=== PATIENT | female | born 1960 | race African-American/Black ===

== ENCOUNTER → 2021-08-17 10:10 | Outpatient (CLI) | payer OTHER, SELFPAY ==
--- NOTE | ~2021-08-17 | XR_ITS ---
EXAMINATION: XR chest 2V Exam Date/Time: 08/17/2021 10:24 CDT HISTORY: Pre employment Comparison: None available. RESULT: Lines, tubes, and devices: None. Lungs and pleura: Ill-defined somewhat nodular opacity in the left lower lung, no correlate in the l ateral view may represent findings in the lingula. Cardiomediastinal silhouette: Stable cardiomediastinal silhouette. Other: No acute osseous or upper abdominal finding. IMPRESSION: Question of a lingular opacity/nodule, consider nonemergent outpatient CT of the chest for further ev aluation. Reviewed, dictated and finalized at location K. IMPRESSION: Question of a lingular opacity/nodule, consider nonemergent outpatient CT of th e chest for further evaluation.
== END ==
PROVIDERS: PCP Family Medicine; Visit Provider Internal Medicine
DX: Z02.1 Encounter for pre-employment examination (principal); R91.8 Other nonspecific abnormal finding of lung field
CPT/HCPCS: 71046

== ENCOUNTER → 2021-08-23 11:06 | Outpatient (CLI) | payer OTHER, SELFPAY ==
--- NOTE | ~2021-08-23 | CT_ITS ---
EXAMINATION: CT diagnostic chest w con DATE: 08/23/2021 11:39 INDICATION: Possible lingular nodule on chest radiograph TECHNIQUE: Transaxial computed tomographic images of the chest were obtained after the administration of 75 cc of Omnipaque 300 intravenous contrast. The dose-length product (DLP) was 273.90 mGy-cm. Ite rative reconstruction was used. COMPARISON: 08/17/2021 FINDINGS: No suspicious correlate is identified for the nodule questioned on the recent chest radiogr aph. A 4 mm nodule of the right upper lobe likely represents old granulomatous disease. There is mild atelectasis of the lingula and right middle lobe. No pleural effusion or pneumothorax. The lungs are free of focal airspace opacities. No pathologically enlarged thoracic lymph nodes are identified. Th e heart size is normal. There is calcified coronary artery atherosclerosis. IMPRESSION: 1. Mild atelectasis. No suspicious correlate for the nodule questioned on recent chest radiograph. Reviewed, dictated and finalized at location F. IMPRESSION: 1. Mild atelectasis. No suspicious correlate for the nodule questioned on recen t chest radiograph.
[2021-08-23 11:32] LABS: Estimated Glomerular Filt Rate > 60
== END ==
PROVIDERS: PCP Family Medicine; Visit Provider Family Medicine
DX: R91.8 Other nonspecific abnormal finding of lung field (principal); I25.10 Atherosclerotic heart disease of native coronary artery without angina pectoris
CPT/HCPCS: 71260; Q9967

== ENCOUNTER → 2021-09-27 09:19 | Outpatient (CLI) | payer OTHER, SELFPAY ==
--- NOTE | ~2021-09-27 | CT_ITS ---
EXAMINATION: CT abdomen pelvis wo con DATE: 09/27/2021 09:33 INDICATION: Left lower quadrant abdominal pain. Diverticulosis. TECHNIQUE: Computed tomography (CT) of the abdomen and pelvis was performed without intravenous contr ast. Automated exposure control and iterative reconstruction technique were employed. Exam dose: 791 .81 mGy-cm total exam DLP. COMPARISON: None. FINDINGS: There is mild discoid atelectasis or scarring in the medial middle lobe and base of the opal gula and left lower lobe. Normal heart size. No pericardial or pleural effusion. The gallbladder is absent. No hepatic, splenic, pancreatic space-occupying mass lesion, pancreatic c alcification or bile duct or pancreatic duct dilatation. Mild nodularity of the adrenal glands, possible small adrenal adenomas. No renal mass lesion or urinary tract calculus or hydroureteronephrosis is evident. There is atherosclerotic calcification of the abdominal aorta and iliac arteries but no aneurysm. No intraperitoneal or retroperitoneal or pelvic mass lesion or adenopathy or ascites is evident. There is diverticulosis of the colon; there is minimal pericolic fat stranding and fascial thickening adjacent to the distal descending colon which may represent mild focal uncomplicated diverticulitis without abscess. No intraperitoneal free air. No bowel obstruction. Status post hysterectomy. The urinary bladder is unremarkable. Small fat-containing umbilical hernia. Degenerative changes of the thoracic and lumbar spine. No suspicious osteolytic or osteoblastic lesio ns.. IMPRESSION: Mild diverticulitis is suggested at the distal descending colon Status post hysterectomy Reviewed, dictated and finalized at Location A. Reviewed, dictated and finalized at location B.
== END ==
PROVIDERS: PCP Family Medicine; Visit Provider Family Medicine
DX: K57.30 Diverticulosis of large intestine without perforation or abscess without bleeding (principal); Z90.710 Acquired absence of both cervix and uterus
CPT/HCPCS: 74176

== ENCOUNTER → 2021-11-27 16:25 | Outpatient (CLI) | payer OTHER, SELFPAY ==
--- NOTE | ~2021-11-27 | XR_ITS ---
EXAM: XR hand BI arthritis min 3V DATE: 11/27/2021 18:21 HISTORY: Arthralgia both hands . COMPARISON: None available. FINDINGS: Normal mineralization. No fracture or dislocation. No lytic or blastic lesion. Moderate na rrowing sclerosis and osteophytosis with subchondral cyst formation in the left trapeziometacarpal charles int. Similar, but more mild osteoarthritic changes are present in the interphalangeal joints of the f ingers, the right trapeziometacarpal joint, the bilateral radiocarpal joints, and the bilateral secon d and third MCP joints. Minimal chondrocalcinosis. Tiny erosions at the lateral corners of the bilate ral second proximal phalanges the ball-catcher's view. No concerning periosteal change. No significan t subluxation. 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 Scattered, mild, predominan tly osteoarthritic change elsewhere in the hands and wrists. Tiny erosions at the lateral corners of the bilateral second proximal phalanges, may reflect a component of early inflammatory arthritic schmitz ge. Reviewed, dictated and finalized at location K. 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 Scatt ered, mild, predominantly osteoarthritic change elsewhere in the hands and wris ts. Tiny erosions at the lateral corners of the bilateral second proximal phala nges, may reflect a component of early inflammatory arthritic change.
== END ==
PROVIDERS: PCP Family Medicine; Visit Provider Family Medicine
DX: M25.541 Pain in joints of right hand (principal); M25.542 Pain in joints of left hand; M05.741 Rheumatoid arthritis with rheumatoid factor of right hand without organ or systems involvement; M05.742 Rheumatoid arthritis with rheumatoid factor of left hand without organ or systems involvement; M19.042 Primary osteoarthritis, left hand; M19.041 Primary osteoarthritis, right hand
CPT/HCPCS: 73130

== ENCOUNTER → 2022-07-03 16:39 | Outpatient (CLI) | payer OTHER, SELFPAY ==
--- NOTE | ~2022-07-03 | XR_ITS ---
EXAMINATION: XR shoulder LT min 2V DATE: 07/03/2022 16:59 INDICATION: Acute pain of left shoulder. TECHNIQUE: 4 views of left shoulder were obtained. COMPARISON: None. FINDINGS: Bone alignment is normal. No fracture. There is mild osteoarthritis of glenohumeral joint a nd acromioclavicular joint. IMPRESSION: 1. Mild polyarticular osteoarthritis. Reviewed, dictated and finalized at location E.
== END ==
PROVIDERS: PCP Family Medicine; Visit Provider Nurse Practitioner Family
DX: M19.012 Primary osteoarthritis, left shoulder (principal)
CPT/HCPCS: 73030

== ENCOUNTER → 2023-01-26 13:34 | Outpatient (CLI) | payer OTHER, SELFPAY ==
--- NOTE | ~2023-01-26 | XR_ITS ---
EXAMINATION: XR chest 2V 01/26/2023 14:51 INDICATION: Right-sided chest pain PROCEDURE: 2 view chest COMPARISON: 08/17/2021 FINDINGS: The lungs are clear. The cardiomediastinal silhouette is within normal limits. There are no pleural effusions. There is no pneumothorax suspected. IMPRESSION: 1: NO ACUTE CARDIOPULMONARY DISEASE. Reviewed, dictated and finalized at location B. STERED MAIL CLERK
== END ==
PROVIDERS: PCP Family Medicine; Visit Provider Family Medicine
DX: R07.9 Chest pain, unspecified (principal)
CPT/HCPCS: 71046

== ENCOUNTER 2023-09-26 10:41 | Outpatient (CLI) | payer OTHER, SELFPAY ==
--- NOTE | ~2023-09-26 | US_ITS ---
EXAMINATION: US thyroid DATE: 09/26/2023 11:00 INDICATION: Endocrine disorder. TECHNIQUE: Multiple ultrasound images of the thyroid were obtained. COMPARISON: None. FINDINGS: The right thyroid lobe measures 3.7 x 0.9 x 1.5 cm. The left thyroid lobe measures 3.1 x 1.1 x 1.4 c m. There is normal echotexture and echogenicity throughout the thyroid gland. No discrete nodules id entified. Normal vascular flow is present. IMPRESSION: 1. Normal thyroid. Reviewed, dictated and finalized at location A. IMPRESSION: 1. Normal thyroid.
== END 2023-09-26 10:42 ==
PROVIDERS: PCP Family Medicine; Visit Provider Otolaryngology
DX: Z13.29 Encounter for screening for other suspected endocrine disorder (principal)
CPT/HCPCS: 76536

== ENCOUNTER 2025-01-29 08:54 | Emergency (ER) | payer MEDICARE, SELFPAY ==
--- OUTSIDE RECORDS SUMMARY | 2018-01-28 11:30 | XMS_ITS | Continuity of Care Document ---
Author Organization [facility] Address [address] [place] [address] Phone Care Team Providers Care Commercial Illustrator Name Role Phone Chaparro PT, DPT, Marcelino Unavailable Unavailable Procedures Procedure Date Therapeutic Exercise Therapeutic Activities Manual Therapy Therapeutic Exercise Therapeutic Activities Manual Therapy Therapeutic Exercise Therapeutic Activities Manual Therapy Therapeutic Exercise Therapeutic Activities Manual Therapy Therapeutic Exercise Therapeutic Activities Manual Therapy Therapeutic Exercise Therapeutic Activities Manual Therapy PT Evaluation Moderate Complexity Therapeutic Exercise Neuromuscular Re-Ed Manual Therapy Advance Directives Directive Yes / No Effective Date File Name No Information Encounters Encounter Description Practice Location Reason(s) For Visit Diagnoses Date Provider Providers Copied on Encounter [facility], [address], [place], [place], [id number], tel:[phone] [place] Pain in right kneeOth symptoms and signs involving the musculoskeletal system 8 Chaparro Benson. . [facility], [place], [place], [id number], tel:[phone] [place] Pain in right kneeOth symptoms and signs involving the musculoskeletal system 8 Makler Luke. . [facility], [id number], tel:[phone] [place] Pain in right kneeOth symptoms and signs involving the musculoskeletal system 8 Makler Luke. . [facility], [id number], tel:[phone] [place] Pain in right kneeOth symptoms and signs involving the musculoskeletal system 8 Makler Luke. . [facility], [id number], tel:[phone] [place] Pain in right kneeOth symptoms and signs involving the musculoskeletal system 8 Makler Luke. . [facility], [id number], tel:[phone] [place] Pain in right kneeOth symptoms and signs involving the musculoskeletal system 8 Makler Luke. . [facility], [id number], tel:[phone] [place] Pain in right kneeOth symptoms and signs involving the musculoskeletal system 8 Makler Luke. . Family History Family Member Type Diagnosis Age At Onset No Information Payers Payer name Insurance type Covered libertarian ID Daniela bourneramo(s) [facility] [employer] [facility] [id number] Social History Type Description Quantity Date Captured Comments Sex Female Smoking Status No Information Chief Complaint And Reason For Visit No Information Reason For Referral Reason For Referral No Information History Of Present Illness Encounter Date Complaint History Of Prese nt Illness No Information Functional Status Date Functional Assessmen t No Information Instructions Date Instruction Additional Infor mation No Information Assessments Type Assessment Date No Information Patient Care Teams Name Effective Dates (start - stop) Status Members No Information
--- OUTSIDE RECORDS SUMMARY | 2018-01-28 11:30 | XMS_ITS | Continuity of Care Document ---
Author Organization [facility] Address [address] [place] [address] Phone Care Team Providers Care Real Estate Assistant Name Role Phone Chaparro PT, DPT, Marcelino [...] Diagnoses Date Provider Providers Copied on Encounter [facility], [address], [place], [place], [id number], tel:[phone] [place] Pain in right kneeOth symptoms and signs involving the musculoskeletal system 8 Chaparro Benson. . [facility], [place], [place], [id number], tel:[phone] [place] Pain in right kneeOth symptoms and signs involving the musculoskeletal system 8 Makler Luke. . [facility] [address], [id number], tel:[phone] [place] Pain in right kneeOth symptoms and signs involving the musculoskeletal system 8 Makler Luke. . [facility], [id number], tel:[phone] [place] Pain in right kneeOth symptoms and signs involving the musculoskeletal system 8 Makler Luke. . [facility] [facility] [address], [id number], tel:[phone] [place] Pain in right kneeOth symptoms and signs involving the musculoskeletal system 8 Makler Luke. . [facility], [id number], tel:[phone] [place] Pain in right kneeOth symptoms and signs involving the musculoskeletal system 8 Makler Luke. . [facility], [id number], tel:[phone] [place] Pain in right kneeOth symptoms and signs involving the musculoskeletal system 8 Makler Luke. . Family History Family Member Type Diagnosis Age At Onset No Information Payers Payer name Insurance type Covered libertarian ID Daniela bourneramo(s) [facility] [employer] [facility] [id number] Social History Type Description Quantity Date Captured [...]
--- OUTSIDE RECORDS SUMMARY | 2024-04-08 04:30 | XMS_ITS ---
Author Organization [facility] jennie Address [address] [place] [address] Care Team Providers Care Claim Processor Name Role Phone Tyler Lynne MD Primary Care Provider Unavail Wanda Guy Unavailable [phone] REASON FOR VISIT 3 month f/u, yd, yd/3 month follow up/flc, RA Medications Medication SIG (Take, Route, Frequency, Duration) Notes Start Date End Date Status Fish Oil 1000 MG daily Oral Ac tive Probiotic Active Collagen Active Turmeric 1500 mg take 1 capsule daily oral *Pick strength-form from [employer] for eRX* Active Folic Acid 800 MCG take 1 tablet (0.8 mg) by oral route once daily Oral 1 Active Metabolic Health Supplement - bid - *Reorder from [employer] for eRx and Interaction Alerts* Active amLODIPine Besylate 5 MG 1 tablet Orally Once a day; Duration: 30 day(s) Active Vitamin C 1000 MG take 1 tablet by oral route once Oral 1 Active Biotin Maximum Strength 5000 MCG take 1 capsule by oral route twice Oral 2 Active Vitamin B 12 Active Vitamin D3 Active Hydroxychloroquine Sulfate 200 MG 1 Orally daily with food; Duration: 30 days Active Encounters Encounter Location Date Provider Diagnosis [facility] [address] [facility] [address] [place] [address] 04/08/2024 Wanda Ross Other rheumatoid arthritis with rheumatoid factor of multiple sites M05.89 ; Decreased GFR R94.4 and High risk medication use Z79.899 Assessments Encounter Date Diagnosis (ICD Code) Assessment Notes Treatment Notes Treatment Clinical Notes Section Notes 04/08/2024 Other rheumatoid arthritis with rheumatoid factor of multiple sites (ICD-10 - M05.89) stable for the most part, continue plaquenil 200mg/day, return in 3 months 04/08/2024 Decreased GFR (ICD-10 - R94.4) stable for the most part, continue plaquenil 200mg/day, return in 3 months 04/08/2024 High risk medication use (ICD-10 - Z79.899) stable for the most part, continue plaquenil 200mg/day, return in 3 months Plan Of Treatment Next Appt Details Provider Name:Wanda Joe, 02/03 10:45:00 AM, [address] [facility] [address], [place], [address], Progress Notes * Kirti HERRING LDOB:[birth year] (64 yo F)Acc No.[id number]:04/08/2024 Patient: Kirti SCHAFFER Appointment Provider: Lenore ROSS MD :1960 A ge:64 Y S ex:Female Date:04/08/2024 [facility] Pcp:Tyler Lynne MD Subjective: * Chief Complaints: * 1 . 3 month f/u, yd. 2. Yd/3 month follow up/flc. 3. RA. * HPI: G eneral Follow up: Synchronous video/audio telecommunication with [employer] Patient has agreed to telehealth visit and is aware insurance will be billed for this visit Location: patient at home, physician in officeon plaquenil 200mg/day, left aches, worse at night, knee bracing helping, also uses ?TENS unit, helping too did not tolerate MTX (liver, throat pain) 01/2023, Cr 0.85, GFR 77, AST normal, ALT 47 08/30/22, CR 0.95, GFR 68, ALT 34 (0-32), AST normal, 12/12/2021, anti-CCP 83.9, SSA/SSB (-), ESR normal, HBV/HCV (-), LFTS (-) 11/27/2021, x-rays of hands: tiny erosions at isa 2nd PIPs, osteoarthritis 11/20/2021, RF 110.8, CARTER (-), CRP normal, WBC/Hb/platelets normal, Cr 1.0, GFR 64 eye exam: 10/2023 sister: RA. * ROS: G eneral / Constitutional: Patient denies c hange in appetite, chills, fatigue, fever, weight loss, weakness. C omments [facility] for details. M usculoskeletal: Comments [facility] for details. S kin: Comments [facility] for details . N eurologic: Patient denies d izziness, gait abnormality, headache, tingling / numbness . * Medical History: * Medications: T aking Hydroxychloroquine Sulfate 200 MG Tablet 1 Orally daily with food , Taking Vitamin D3 , Taking Vitamin B 12 , Taking Biotin Maximum Strength 5000 MCG Capsule take 1 capsule by oral route twice Oral 2 , Taking amLODIPine Besylate 5 MG Tablet 1 tablet Orally Once a day , Taking Metabolic Health Supplement - bid - , Notes to Pharmacist: *Reorder from [employer] for eRx and Interaction Alerts*, Taking Vitamin C 1000 MG Tablet take 1 tablet by oral route once Oral 1 , Taking Fish Oil 1000 MG Capsule Delayed Release daily Oral , Taking Folic Acid 800 MCG Tablet take 1 tablet (0.8 mg) by oral route once daily Oral 1 , Taking Turmeric 1500 mg capsule take 1 capsule daily oral , Notes to Pharmacist: *Pick strength-form from [employer] for eRX*, Taking Collagen , Taking Probiotic Objective: * Vitals: * Examination: G eneral Examination: General appearance: a lert, well-nourished and in no acute distress , alert, well-nourished and in no acute distress , alert, well-nourished and in no acute distress. Head: n ormocephalic, atraumatic , normocephalic, atraumatic , normocephalic, atraumatic. Eyes: n ormal , normal , normal. Skin: n o rash , no rash , no rash. Lungs: r espiratory effort normal , respiratory effort normal , respiratory effort normal. P sychiatry: Affect / mood: n ormal affect, normal mood , appropriate , appropriate. N eurology: Speech: n ormal , normal. s peech normal. R heumatology: R 2nd PIP mildly tender no obvious swelling. Assessment: * Assessment: 1. O ther rheumatoid arthritis with rheumatoid factor of multiple sites - M05.89 (Primary) 2 . D ecreased GFR - R94.4 3 . H igh risk medication use - Z79.899 stable for the most part, co ntinue plaquenil 200mg/day, return in 3 months. Plan: * Treatment: * Billing Information: * Visit Code: * Procedure Codes: * Electronic signature of Wanda Ross MD on 01/29/2025 at 08:57 AM CERTIFIED ATHLETIC TRAINER Sign off status: Pending * Appointment Provider: Lenore ROSS MD Date: 0 04/08/2024 Generated for Mel banks/Michael/Dorcas on: 1 04/01/2024 08:57 AM CERTIFIED ATHLETIC TRAINER History and Physical Notes * HPI (History of Present Illness) Category Sub-Category Detail Notes Category Not es General Follow up Synchronous video/audio telecommunication with [employer] Patient has agreed to telehealth visit and is aware insurance will be billed for this visit Location: patient at home, physician in office on plaquenil 200mg/day, left aches, worse at night, knee bracing helping, also uses ?TENS unit, helping too did not tolerate MTX (liver, throat pain) 01/2023, Cr 0.85, GFR 77, AST normal, ALT 47 08/30/22, CR 0.95, GFR 68, ALT 34 (0-32), AST normal, 12/12/2021, anti-CCP 83.9, SSA/SSB (-), ESR normal, HBV/HCV (-), LFTS (-) 11/27/2021, x-rays of hands: tiny erosions at isa 2nd PIPs, osteoarthritis 11/20/2021, RF 110.8, CARTER (-), CRP normal, WBC/Hb/platelets normal, Cr 1.0, GFR 64 eye exam: 10/2023 sister: RA Examination Category Sub-Category Detail Notes Category Not es Rheumatology R 2nd PIP mildly tender no obvious swelling Neurology Speech: normal , normal speech norm al Psychiatry Affect / mood: normal affect, n ormal mood , appropriate , appropriate General Examination General appearance: alert, w ell-nourished and in no acute distress , alert, well-nourished and in no acute distress , alert, well-nourished and in no acute distress Head: normocephalic, atrau matic , normocephalic, atraumatic , normocephalic, atraumatic Eyes: normal , normal , no rmal Lungs: respiratory effort n ormal , respiratory effort normal , respiratory effort normal Skin: no rash , no rash , no rash
--- OUTSIDE RECORDS SUMMARY | 2024-04-08 04:30 | XMS_ITS ---
Author Organization [facility] Address [address] [place] [address] Care Team Providers Care Horse Race Timer Name Role Phone Tyler Lynne MD Primary Care Provider Unavail Wanda Guy Unavailable [phone] REASON FOR VISIT yd/3 month follow up/flc Encounters Encounter Location Date Provider Diagnosis [facility] [address] [place] [address] 04/08/2024 Wanda Ross Plan Of Treatment Next Appt Details Provider Name:Wanda Ross, 02/03 10:45:00 AM, [address], [place], [address], Progress Notes * NIMAChristopherKirti LDOB:[birth year] (64 yo F)Acc No.[id number]:04/08/2024 Progress Notes Patient: Kirti SCHAFFER Appointment Provider: Lenore ROSS MD :1960 A ge:64 Y S ex:Female Date:04/08/2024 Address:[address], [id number] Pcp:Tyler Lynne MD Subjective: * Chief Complaints: * 1 . Yd/3 month follow up/flc. * Medical History: Objective: * Vitals: Assessment: Plan: * Treatment: * Billing Information: * Visit Code: * Procedure Codes: * Electronic signature of Wanda Ross MD on 01/29/2025 at 08:57 AM ESL INSTRUCTOR Sign off status: Pending * Appointment Provider: Lenore ROSS MD Date: 0 04/08/2024 Generated for Mel banks/Michael/Dorcas on: 1 04/01/2024 08:57 AM ESL INSTRUCTOR
--- NOTE | ~2025-01-29 | XR_ITS ---
Examination: XR shoulder RT min 2V Clinical History: pain to Rt shoulder since last night, no known injury Comparison: None Technique: 4 views right shoulder Findings/impression: 1. No acute fracture or dislocation. Reviewed, dictated and finalized at location R. N ROOM OPERATOR
[2025-01-29 08:55] VITALS: BP 146/77; PULSE 89; RESP 16; TEMP 36.5; O2SAT 100
--- NOTE | 2025-01-29 08:58 | ECG_ITS ---
Test Date: 2025-01-29 09:01:32 Measurements Intervals [place] Rate: 85 P: 60 ME: 138 QRS: 19 QRSD: 77 T: 44 QT: 315 QTc: 376 Interpretive Statements SINUS RHYTHM LOW QRS VOLTAGE IN PRECORDIAL LEADS POSSIBLE ANTERIOR MYOCARDIAL INFARCTION , PROBABLY OLD BORDERLINE ST-T WAVE ABNORMALITY- LAT/HIGH LAT LEADS BASELINE ARTIFACT- I, II, III, AVR, AVL, AVF ABNORMAL ECG No previous ECG available for comparison Electronically Signed On 01-29-2025 09:33:28 NETWORK SPECIALIST by Niko Reyna D.O.
--- OUTSIDE RECORDS SUMMARY | 2025-01-29 08:58 | XMS_ITS | Clinical Summary ---
Author Organization [facility] [address] Address [address] [place] [address] Care Team Providers Care Running Rigger Name Role Phone Tyler Lynne MD Primary Care Provider [phone] Rachael Scott MD Unavailable [phone] Wanda Diaz MD Unavailable Allergies Active Allergy Reactions Criticality Noted Date Comments Latex Other (See comments) Reaction: RASH AND ITCHING, , Medications ascorbic fxyc-ccnfiljw-usl 1,000 mg powder effervescent in packet Take 1 Package by mouth daily Active TURMERIC ORAL Take 1,500 mg by mouth Active hydroxychloroquin e (PLAQUENIL) 200 mg tablet Take 1 tablet (200 mg total) by mouth daily 4 Active Bacillus coagulans/inulin/ B12 (FLORASTOR DIGEST-METABOLIC ORAL) bid - Active ascorbic acid/collagen hydr (ASCORBIC ACID-COLLAGEN ORAL) Collagen Active amLODIPine (NORVASC) 5 mg tabletIndications :Benign hypertension Take 1 tablet (5 mg total) by mouth daily 90 tablet 3 5 09/17/19 26 Active tirzepatide (Mounjaro) 2.5 mg/0.5 mL pen injector injection Inject 0.5 mL (2.5 mg total) under the skin every 7 days 2 mL 5 Active Active Problems Problem Noted Date Diagnosed Date Prediabetes 03/05/2020 Assessment & Plan (12/14/2020 3:46 PM CDT): We may need to bring back in 3 months if the repeat a1c is above 6.5%; that is ordered to be rechecked in 2 weeks For now, will consider you prediabetic still. Cut back on carbohydrate-rich foods, get more exercise. Assessment & Plan (06/13/2020 4:30 PM CDT): The blood sugar is improved, still in 'prediabetic' range but closer to normal. Not particularly worrisome. 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 Assessment & Plan (09/07/2022 11:20 AM CDT): BMI Follow-up includes: nutrition counseling, exercise counseling, and education provided. Assessment & Plan (07/03/2022 4:54 PM CDT): Healthy, low carbohydrate lifestyle and exercise for 150min/week recommended Assessment & Plan (02/26/2022 3:42 PM DELIVERY REP): BMI Follow-up includes: nutrition counseling, exercise counseling and education provided. Assessment & Plan (10/02/2021 3:01 PM CDT): BMI Follow-up includes: nutrition counseling, exercise counseling and education provided. Assessment & Plan (12/14/2020 3:47 PM CDT): BMI Follow-up includes: nutrition counseling, exercise counseling and education provided. Assessment & Plan (06/13/2020 4:30 PM CDT): BMI Follow-up includes: nutrition counseling, exercise counseling and education provided. Benign hypertension 06/17/2016 Overview (07/18/2016): Benign hypertension Assessment & Plan (09/07/2022 11:19 AM CDT): BP is controled Continuing amlodipine Labs look fine overall I do note the red cell count is mildly elevated; ALT is 34 international units/L, also mildly elevated. Assessment & Plan (12/14/2020 3:47 PM CDT): BP is borderline elevated, will continue current regimen however as it is a bit of an outlier. Continuing amlodipine Assessment & Plan (06/13/2020 4:30 PM CDT): Will look at the lab results a bit more, consider hematology consultation The BP is well controlled, will continue amlodipine Diverticulosis of colon 11/08/2010 Keratitis, superficial 08/12/2010 Resolved Problems Problem Noted Date Diagnosed Date Resolved Date Hyperthyroidism 09/24/2023 09/19/2024 Epistaxis 04/05/2018 10/18/2018 Assessment & Plan (04/05/2018 12:50 PM DELIVERY REP): Patient was noted to have a small hypervascular area with excoriation along the anterior septum. Silver nitrate cautery was performed today. Nasal moisturizers and nasal hygiene care instructions were discussed. Patient can follow back up as needed. Parotitis 01/12/2018 10/18/2018 Immunizations Immunization Administration Dates Next Due Hep B Vaccine 09/28/2021,08/28/2021 Influenza, Trivalent, IM (MDV) 12/12/2013,2012 Influenza, Unspecified 04/28/2024(Deferr ed: Patient Refused),02/24/2023(Deferred: Patient Refused),11/23/2022,11/25/2021,02/23/19 22(Deferred: Patient Refused),12/17/2019,11/23/2018(Deferred : Patient Refused),01/11/2018(Deferred: Patient Refused),11/23/2017(Deferred: Patient Refused) Pfizer SARS-CoV-2 Monovalent Vaccination (12+ Yrs) PURPLE 05/31/2021,05/17/2020,04/26/2020 Tdap 09/02/2021 Surgical History Surgery Date Site/Laterality Comments OTHER SURGICAL HISTORY fibroid: BALAJI BSO-ERT OTHER SURGICAL HISTORY 02/23/1979 - 02/23/1980 : OTHER SURGICAL HISTORY 02/23/1986 - 02/22/1987 : SECTION OTHER SURGICAL HISTORY caesarian section TOTAL ABDOMINAL HYSTERECTOMY W/ BILATERAL SALPINGOOPHORECTOMY Hysterectomy, total abdominal, BSO APPENDECTOMY 04/1980 Appendectomy CHOLECYSTECTOMY 04/1980 Cholecystectomy KNEE ARTHROPLASTY Right Knee replacement REDUCTION MAMMAPLASTY 02/24/1992 - 02/22/1993 Bilateral CARPAL TUNNEL RELEASE SECTION 1979 & 1986 JOINT REPLACEMENT Total Right Knee Replacement 06/05/2015 Medical History Medical History Date Comments Hx Other Medical 1990 fibroid Hx Other Medical 1995 HERNIA REPAIR/A BD Hx Other Medical BREAST REDUCTIO N Hypertension 2 years ago Hypertension Hx Other Medical 1979 ; Outc ome: 40 week 7 lb(s) 12 oz Female Hx Other Medical 1986 ; Outc ome: 38 week 7 lb(s) 6 oz Female Hx Other Medical back pain; Comm ents: APO 11/11/2013 - Hx Other Medical balaji; Comments: APO 11/11/2013 - Hx Other Medical c section; Comm ents: APO 11/11/2013 - Hx Other Medical hiatal hernia; Comments: APO 11/11/2013 - Osteoarthritis Osteoarthritis; Comments: APO 11/11/2013 - Osteoarthritis Osteoarthritis; Comments: OAC 03/24/2014 -; Laterality: bilateral Sciatica Sciatica; Commen ts: OAC 03/24/2014 -; Laterality: left Diverticulosis of colon 11/08/2010 Benign hypertension 06/17/2016 Benign hyper tension Hiatal hernia Prediabetes 03/05/2020 Sickle cell anemia (HCC) 1981 Autoimmune disease [id number] Family History Medical History Relation Name Comments Arthritis Father Rev Edmond Ahn Hypertension Father Rev Edmond hAn Hyperten marleni; Arthritis Mother Christina Ahn Hypertension Mother Christina Ahn Hypertension; Arthritis Other 1 Family history of Arthritis; Hypertension Other 2 Family history of Hypertension; Breast cancer Neg Hx Endometrial cancer Neg Hx Ovarian cancer Neg Hx Thyroid cancer Neg Hx Relation Name Status Comments Father Rev Edomnd Ahn Mother Christina Ahn Other 1 Other 2 Social History Tobacco Use Types Packs/Day Years Used Date Smoking Tobacco: Former Cigarettes 0.3 8 1 980 - 1987 Passive Smoke Exposure: Past Smokeless Tobacco: Never Alcohol Use Standard Drinks/Week Comments No 0 (1 standard drink = 0.6 oz pur e alcohol) Overall Financial Resource Strain (CARDIA) Answe r Date Recorded How hard is it for you to pa y for the very basics like food, housing, medical care, and heating? Not hard at all 04/18/2019 PHQ-2 Answer Date Recorded PHQ-2 Total Score (If total score is 3 or more points, staff should administer the PHQ-9) 0 04/28/2024 Hunger Vital Sign Answer Date Recorded Within the past 12 months, y ou worried that your food would run out before you got the money to buy more. Never true 04/18/19 20 Within the past 12 months, t he food you bought just didn't last and you didn't have money to get more. Never true 04/18/2019 PRAPARE - Transportation Answer Date Re corded In the past 12 months, has l ack of transportation kept you from medical appointments or from getting medications? No 03/27 In the past 12 months, has l ack of transportation kept you from meetings, work, or from getting things needed for daily living? No 04/18/2019 Education Answer Date Recorded What is the highest level of school you have completed or the highest degree you have received? 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 Not on file Not on file Obstetrics History Para Term AB IAB SAB Ectopic Multiple Livin g Live Births 2 2 2 Date Outcome GA Total Labor Labor/2nd/3rd Weight Sex Type Anes PTL Sallie A1 A5 Name Clin Term Term Last Filed Vital Signs Vital Sign Reading Time Taken Comments Blood Pressure 128/80 09/16/2024 10:03 AM CDT Pulse 72 09/16/2024 10:03 AM CDT Temperature 36 C (96.8 F) 09/16/2024 10:03 AM CDT Respiratory Rate 18 09/16/2024 10:03 AM CDT Oxygen Saturation 98% 09/16/2024 10:03 AM CDT Inhaled Oxygen Concentration - - Weight 84.8 kg (187 lb) 09/16/2024 10:03 AM CDT Height 162.6 cm (5' 4) 09/16/2024 10:03 AM CDT Body Mass Index 32.1 09/16/2024 10:03 AM CDT Plan of Treatment Health Maintenance Due Date Last Done Comments Zoster Vaccine (1 of 2) 02/10/1979 Regular Well Visit/Exam 18-64 04/18/2020 04/18/2019 Covid-19 Vaccine (2024-2 6 season) 2024 01/01/2022, 05/31/2021, 05/31/2021, Additional history exists Influenza Vaccine (#1) 2024 , 11/25/2021, 12/17/2019, Additional history exists Breast Cancer Screening-Mammogram 01/07/2025 01/08/2024, 01/08/2024, 11/25/2022, Additional history exists Colon Cancer Screening-Colonoscopy 04/25/2025 04/26/2015 Depression Screening 04/28/2025 04/28/2024, 12/24/2023, 09/16/2023, Additional history exists DTaP/Tdap/Td Vaccine (2 - Td or Tdap) 09/03/2031 09/02/2021 Colon Cancer Screening-CT Colonography Discontinued 04/26/2015 Colon Cancer Screening-Sigmoidoscopy Discontinued 04/26/2015 Hepatitis B Screening Completed 09/28/2021, 022 Hepatitis C Screening Completed 12/12/2021 , 09/14/2018, 09/14/2018 Colon Cancer Screening-DNA Stool Discontinued 05/21/19 25, 04/26/2015 Colon Cancer Screening-FIT Discontinued 05/20/2024, Pneumococcal vaccine <65 Discontinued Procedures Procedure Name Priority Date/Time Associated Diagnosis Comments STOOL DNA COLOGUARD Routine 05/20/2024 10:24 AM CDT Colon cancer screening SCREENING MAMMOGRAM 2D BILATERAL Schedule Routine, Read Routine (OP Routine) 11/25/2022 HEPATITIS C ANTIBODY Routine 12/12/2021 10:04 AM CDT COLONOSCOPY Routine 04/26/2015 from Last 3 Months or Most Recently Relevant to Health Maintenance Results * Stool DNA - Cologuard (05/20/2024 10:24 AM CDT) Stool DNA - Cologuard Negative Negative [facility] (CLIA #:[id number]) Comment: NEGATIVE TEST RESULT. A negative Cologuard result indicates a low likelihood that a colorectal cancer (CRC) or advanced adenoma (adenomatous polyps with more advanced pre-malignant features) is present. The chance that a person with a negative Cologuard test has a colorectal cancer is less than 1 in 1500 (negative predictive value >99.9%) or has an advanced adenoma is less than 5.3% (negative predictive value 94.7%). These data are based on a prospective cross-sectional study of 10,000 individuals at average risk for colorectal cancer who were screened with both Cologuard and colonoscopy. (Catherine Pinon al, N Engl J Med 2014;370(14):9267-3464) The normal value (reference range) for this assay is negative. COLOGUARD RE-SCREENING RECOMMENDATION: Periodic colorectal cancer screening is an important part of preventive healthcare for asymptomatic individuals at average risk for colorectal cancer. Following a negative Cologuard result, the [place] Cancer Society and U.S. Multi-Society Task Force screening guidelines recommend a Cologuard re-screening interval of 3 years. References: [place] [employer] Guideline for Colorectal Cancer Screening: https://www.cancer.org/cancer/yyrns-zqtchr-ixemzg/ctwkqjnrp-kzbdgiitc-wuouwqf/ac s-rec ommendations.html.; Oren PATEL, Viraj EAST, Jorge BENNETT, Colorectal Cancer Screening: Recommendations for Physicians and Patients from the U.S. Multi-Society Task Force on Colorectal Cancer Screening , Am J Gastroenterology 2017; 112:1536-4087. TEST DESCRIPTION: Composite algorithmic analysis of stool DNA-biomarkers with hemoglobin immunoassay. Quantitative values of individual biomarkers are not reportable and are not associated with individual biomarker result reference ranges. Cologuard is intended for colorectal cancer screening of adults of either sex, 45 years or older, who are at average-risk for colorectal cancer (CRC). Cologuard has been approved for use by the U.S. FDA. The performance of Cologuard was established in a cross sectional study of average-risk adults aged 50-84. Cologuard performance in patients ages 45 to 49 years was estimated by sub-group analysis of near-age groups. Colonoscopies performed for a positive result may find as the most clinically significant lesion: colorectal cancer [4.0%], advanced adenoma (including sessile serrated polyps greater than or equal to 1cm diameter) [20%] or non- advanced adenoma [31%]; or no colorectal neoplasia [45%]. These estimates are derived from a prospective cross-sectional screening study of 10,000 individuals at average risk for colorectal cancer who were screened with both Cologuard and colonoscopy. (Catherine Love. et al, N Engl J Med 2014;370(14):3228-0163.) Cologuard may produce a false negative or false positive result (no colorectal cancer or precancerous polyp present at colonoscopy follow up). A negative Cologuard test result does not guarantee the absence of CRC or advanced adenoma (pre-cancer). The current Cologuard screening interval is every 3 years. ([place] [employer] Society and U.S. Multi-Society Task Force). Cologuard performance data in a 10,000 patient pivotal study using colonoscopy as the reference method can be accessed at the following location: www.[employer]us[employer]/results. Additional description of the Cologuard test process, warnings and precautions can be found at www.cologuard.com. Stool 05/20/2024 10:2 4 AM CDT 05/21/2024 6:35 AM CDT Result [facility] Tyler Lynne MD LAB BODY FLUIDS AND STOOLS ORDERABLES Final Result Performing Organization Address City/[facility]/ZIP Co de Phone Number [facility] (CLIA #:[id number]) [address] [place] [address] [address] * Screening Mammogram 2D Bilateral (11/25/2022) Anatomical Region Laterality Modality Breast Bilateral Mammography Historical Provider IMG MAMMO PROCEDURES Hailey l Result * Hepatitis C antibody (12/12/2021 10:04 AM CDT) Hep C Ab Nonreactive Nonreactive JODI [facility] Comment: Interpretive Data Nonreactive: Antibodies to HCV not detected. Does NOT exclude the possibility of recent exposure to HCV. Equivocal: Equivocal for HCV antibodies. Supplemental molecular testing will be automatically performed to determine infection status in accordance with current CDC screening recommendations. Reactive: Positive for HCV antibodies. This may represent current or past HCV infection. Supplemental molecular testing will be automatically performed to determine current infection status in accordance with current CDC screening recommendations. Interpretive data was last revised on 2019. Blood 12/12/2021 10:0 4 AM CDT 12/12/2021 11:26 AM CDT Result [facility] Wanda Diaz MD LAB MICROBIOLOGY - GENERAL ORDER GAGAN Final Result Performing Organization Address City/[facility]/ZIP Co de Phone Number [facility]3] [address] [place] [address] * Colonoscopy (04/26/2015) Anatomical Region Laterality Modality Other Result [facility] Historical Provider ENDOSCOPY PROCEDURES Hailey l Result from Last 3 Months or Most Recently Relevant to Health Maintenance Insurance [employer] T [facility] MEDICARE ADVANTAGE [facility] MEDICARE Address: [address] [address] [place] [address] Care Teams Running Rigger Relationship Specialty Start Date End Date Tyler Lynne MD [address] [place] [address] PCP - General 05/23/16 Rachael Scott MD [address] [place], [place] [address] [place], [place] [id number] Facility Practice Specialist Gynecology 01/11/18 Wanda Diaz MD [address] [place], [place] [address] [place] [address] Consulting Physician Rheumatology 02/26/22
--- OUTSIDE RECORDS SUMMARY | 2025-01-29 08:58 | XMS_ITS | Data Portability ---
Author Organization [place] - [facility], Main Office Address [address] [place] [address] Care Team Providers Care Regional Facilities Specialist Name Role Phone ROSALINDA ECHEVARRIA Primary Care Provider CODY VAMSHI [employer] Functional Analyst Assessment No assessment recorded. Plan of Treatment Reminders Order Date Submit Date Provider Last Modified By Organization Details Last Modified Time Details Appointments None recorded. Lab thyroid peroxidase (tpo) Ab, serum - Order for Thyroid peroxidase Ab/anti- tpo. 2023 024 [facility], [address], [place], [address], 05:01:43 Referral None recorded. Procedures None recorded. Surgeries None recorded. Imaging None recorded. Medication Orders None recorded. Patient TargetsNo targets recorded. Patient Instructions Encounter Date Encounter Id Patient Instructions Last Modified By Organization Details Last Modified Time 09/24/2023 [id number] this patient undergo a thyroid ultrasound and a thyroid peroxidase antibody [email or web address] Not available 09/24/2023 11:46:15 Reason for Referral None Reported. Results Created Date Observation Date Name Description Value Unit Range Abnormal Flag Note LastModifiedBy Organization Detail LastModifiedTime 09/28/1909/26/2023 US, thyro id No observ ation record ed. [email or web address] [facility] [address], [place], [address], 09/29/2023 10:24:20 10/02/19 24 10/02/2023 US, thyro id No observ ation record ed. BARCODE [facility] [address], [place], [address], 10/02/2023 09:23:33 Result Notes None recorded. Problems Name Problem SNOMED Code Status Onset Date Resolution Date Notes Provider Name and Address Organization Details Recorded Time Hyperthyroidism 73299786 Active 2023 Leland Hernandes MD [address], [address], [place], [address], [facility] 4 11:45:27 Problem Notes None recorded. Procedures Surgical History Date Name Laterality Status Provider Name and Address Organization Details Recorded Time cauterization of internal nose completed ANNEMARIE Benavides [facility] [employer] 09/23/2023 15:17:53 Imaging Results None recorded. Procedure Notes None recorded. Medical Equipment None Reported. Allergies Allergen ID Allergen Name Allergen Category Reaction Reaction Severity Criticality Documentation Date Start Date Code Code System Note Provider Name and Address Organization Details Recorded Time 03361 latex environme nt,medica tion itching Not available Not available 09/23/2023 11907 91 RxNorm ANNEMARIE Benavides [facility] 4 15:14:37 Medications Name Sig Start Date Stop Date Status Note LastModified by Organization Details LastModified Time amlodipine 5 mg tablet Take 1 tablet every day by oral route. active Not Available Not Available No t Available Vitamin C 1,000 mg tablet Take by oral route. active Not Available Not Available Not Available methotrexate sodium 2.5 mg tablet TAKE 4 TABLETS BY MOUTH 1 TIME A WEEK active Not Available Not Available Not Available methylpredni solone 4 mg tablets in a dose pack FOLLOW PACKAGE DIRECTIONS active Not Available Not Available N ot Available folic acid 800 mcg tablet Take 1 tablet every day by oral route. active Not Available Not Available No t Available amoxicillin 875 mg-potassium clavulanate 125 mg tablet TAKE 1 TABLET BY MOUTH TWICE DAILY FOR 10 DAYS active Not Available Not Available No t Available Fish Oil 2,400 mg active Not Available Not Av ailable Not Available Vitamin D 25 mcg active Not Available Not Brandy ilable Not Available B12 500 mcg active Not Available Not Avail able Not Available methotrexate 2.5 mg tablet Take 3 tablets every week by oral route. active Not Available Not Available No t Available omega-3s 720 mg-dha 300 mg-epa 360 mg-fish oil 1,200 mg capsule Take by oral route. active Not Available Not Available Not Available turmeric root extract 500 mg tablet Take by oral route. active Not Available Not Available Not Available Vitals Date Recorded Body weight Body mass index (BMI) Body height Body temperature Provider Name and Address Organization Details Last Updated DateTime 09/24/2023 18511.34 g 32 kg/m2 162.56 cm 97.6 [degF] ANNEMARIE Benavides [employer] 09/24/2023 11:09:15 Social History None recorded. Functional Status Question Answer Note LastModified by Organization D etails LastModified Time What is your level of alcohol consumption? None [email or web address] Information not available 09/23/2023 Mental Status None recorded. Family History Nothing Reported Notes:NO ENT Medical History Condition Response ENT Y HYPERTENSION Y Gynecological HistoryNo gynecological history recorded. Obstetrics History GPAL:G 0 P 0 0 0 0 Past Encounters Encounter ID Performer Location Encounter Start Date Encounter Closed Date Diagnosis/Indication Diagnosis SNOMED-CT Code Diagnosis ICD10 Code Diagnosis IMO Codes Diagnosis Note [id number] Leland Hernandes MD [facility] [place] [address] [place] [address] 09/24/2023 10:59:42 09/24/2023 11:50:06 Family history of hyperthyroidism 008525794 Z83.49 Hyperthyroidism 02575807 E05.90 Health Concerns Section Related Observation LastModified by Organization Detai ls LastModified Time None Recorded Concern Status LastModified by Organization Details LastModified Time None Recorded Advance Directives Directive None Recorded Payers Insurance Date Sequence Insurance Name Policy Number Policy Plummer Covered Member ID Plummer Member ID Guarantor Name 09/24/2023 1 [facility] [id number] Kirtiaubrey Ngoidge Notes Date Note Type Note Provider Name and Address Organization Details Recorded Time 09/24/2023 text/html this patient reports a 2 week history of sore throat and left ear pain. Was placed on Augmentin and she cleared but had a relapse. She was then placed on a Medrol Dosepak and she cleared again. She did have a low TSH and she does have a nut orchardist for rheumatoid arthritis. Leland Hernandes MD [address] [place] [address], [place], [address], [employer] 09/24/2023 11:46:52 OBGyn Episode No OBEpisode recorded.
--- OUTSIDE RECORDS SUMMARY | 2025-01-29 08:58 | XMS_ITS | Patient Health Record ---
Author Organization [facility] jennie Address [address] [place] [address] Care Team Providers Care Mixer Slagman Name Role Phone Tyler Lynne MD Primary Care Provider Unavail able JoeWanda Unavailable [phone] Allergies Allergen (clinical drug ingredient) Drug/Non Drug Allergy documented on EMR Reaction Allergy Type Onset Date Status Latex Latex Unknown Allergy 12/07/2021 Active Reason For Referral No Information Medications Medication SIG (Take, Route, Frequency, Duration) Notes Start Date End Date Status Vitamin C 1000 MG take 1 tablet by oral route once Oral 1 Active Collagen Active Probiotic Active Metabolic Health Supplement - bid - *Reorder from [employer] for eRx and Interaction Alerts* Active Turmeric 1500 mg take 1 capsule daily oral *Pick strength-form from [employer] for eRX* Active amLODIPine Besylate 5 MG 1 tablet Orally Once a day; Duration: 30 day(s) Active Hydroxychloroquine Sulfate 200 MG TAKE 1 TABLET BY MOUTH DAILY WITH FOOD; Duration: 90 Active Social History Tobacco Use: Social History Observation Description Date Details (start date - stop date) Never Smoker NA - NA Tobacco Control (Standard) Question Answer Notes Tobacco use: Nonsmoker Problems Problem Type SNOMED Code ICD Code Onset Dates Problem Status W/U Status Risk Notes Problem Rheumatoid arthritis (46678054) 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 [address] [place] [address] 04/29/2024 Wanda Du Other rheumatoid arthritis with rheumatoid factor of multiple sites M05.89 ; Decreased GFR R94.4 and High risk medication use Z79.[address] [facility] [address] [place] [address] 08/05/2024 Wanda Du Other rheumatoid arthritis with rheumatoid factor of multiple sites M05.89 ; Decreased GFR R94.4 and High risk medication use Z79.[address] [facility] [address] [place] [address] 04/04/2024 Wanda Du [facility] [address] [place] [address] 04/08/2024 Wanda Du [facility] [address] [place] [address] 05/24/2024 Wanda Du Other rheumatoid arthritis with rheumatoid factor of multiple sites M05.[address] [facility] [address] [place] [address] 06/09/2024 Wanda Du Other rheumatoid arthritis with rheumatoid factor of multiple sites M05.[address] [facility] [address] [place] [address] 07/15/2024 Wanda Du Other rheumatoid arthritis with rheumatoid factor of multiple sites M05.[address] [facility] [address] [place] [address] 01/12/2025 Wanda Du [facility] [address] [place] [address] 04/08/2024 Wanda Du Other rheumatoid arthritis with rheumatoid factor of multiple sites M05.89 Assessments Encounter Date Diagnosis (ICD Code) Assessment Notes Treatment Notes Treatment Clinical Notes Section Notes 04/08/2024 Other rheumatoid arthritis with rheumatoid factor of multiple sites (ICD-10 - M05.89) 04/29/2024 Other rheumatoid arthritis with rheumatoid factor of multiple sites (ICD-10 - M05.89) stable, decrease plaquenil to 100mg/day per her request, return in 3 months 05/24/2024 Other rheumatoid arthritis with rheumatoid factor of multiple sites (ICD-10 - M05.89) 06/09/2024 Other rheumatoid arthritis with rheumatoid factor of multiple sites (ICD-10 - M05.89) 07/15/2024 Other rheumatoid arthritis with rheumatoid factor of multiple sites (ICD-10 - M05.89) 08/05/2024 Other rheumatoid arthritis with rheumatoid factor of multiple sites (ICD-10 - M05.89) stable for the most part, continue plaquenil 200mg/day, return in 6 months 04/29/2024 Decreased GFR (ICD-10 - R94.4) stable, decrease plaquenil to 100mg/day per her request, return in 3 months 08/05/2024 Decreased GFR (ICD-10 - R94.4) stable for the most part, continue plaquenil 200mg/day, return in 6 months 08/05/2024 High risk medication use (ICD-10 - Z79.899) stable for the most part, continue plaquenil 200mg/day, return in 6 months 04/29/2024 High risk medication use (ICD-10 - Z79.899) stable, decrease plaquenil to 100mg/day per her request, return in 3 months 04/08/2024 stable fo r the most part, continue plaquenil 200mg/day, return in 3 months Plan Of Treatment Pending Test Test Name Order Date CBC With Differential/Platelet 3 CBC With Differential/Platelet 4 CBC With Differential/Platelet 4 CMP - Comp. Metabolic Panel (14) 024 Chem-Comprehensive 04/23/2023 Chem-Comprehensive 01/22/2023 Next Appt Details Provider Name:Wanda Joe, 02/03 10:45:00 AM, [address], [place], [address], Insurance Providers Payer Name Payer Address Payer Phone Subscriber Number Group Number Insured Name Patient Relationship to Insured Coverage Start Date Coverage End Date [facility] [address] [place] [address] [phone] [id number] Kirti Chiu Self - patient is the insured Medical (General) History Medical History History ICD Code Diverticulosis; Hiatal hernia; Hypertension; Surgical History Surgery Date(Month/Year) Appendectomy; 2021-12-07 C section; 2021-12-07 cholecystectomy; 2021-12-07 Hernia Repair; 2021-12-07 Knee replacement, right; 2021-12-07 Breast reduction; 2021-12-07 Hysterectomy; 2021-12-07
--- OUTSIDE RECORDS SUMMARY | 2025-01-29 08:58 | XMS_ITS | Clinical Summary ---
Author Organization [facility] Address [address] [place] [address] Care Team Providers Care Aviation Electronics Technician Name Role Phone Unavailable Primary Care Provider Unavailabl e Encounters Date Type Department Care Team Description 12/14/2024 External Device Data [facility] ABSTRACTION Provider, Abstract 12/13/2024 External Device Data [facility] ABSTRACTION Provider, Abstract 11/08/2024 External Device Data [facility] ABSTRACTION Provider, Abstract from Last 3 Months Social History Tobacco Use Types Packs/Day Years Used Date Smoking Tobacco: Never Assessed Comments Unknown Sex and Gender Information Value Date Recorded Sex Assigned at Not on file Legal Sex Female 6:44 PM TIRE MOLD TESTER Gender Identity Not on file Sexual Orientation Not on file Plan of Treatment Health Maintenance Due Date Last Done Comments ZOSTER VACCINE (1 of 2) 02/10/1979 FIT-DNA Q 3 years 02/10/2005 FIT/FOBT Q 1 year 02/10/2005 Flex Sig/CT Colonography Q 5 years 02/10/2005 RSV VACCINE (60+ or ) (1 - Risk 50-74 years 1-dose series) 02/10/2010 INFLUENZA VACCINE (#1) 2024 12/12/2013, 2012 COVID-19 Vaccine (2024-2 6 season) 2024 05/31/2021, 05/17/2020, 04/26/2020 BREAST CANCER SCREENING 01/07/2025 01/08/20 24, 11/25/2022, 11/25/2022, Additional history exists COLORECTAL SCREENING 04/25/2025 04/26/2015 Colorectal Cancer Screening 04/25/2025 DTAP/TDAP/TD VACCINES (2 - T d or Tdap) 09/03/2031 09/02/2021 Procedures Procedure Name Priority Date/Time Associated Diagnosis Comments MAMMO 3D ALBERT SCREEN BILAT W OR WO CAD Routine 01/08/2024 1:33 PM TIRE MOLD TESTER Visit for screening mammogram from Last 3 Months or Most Recently Relevant to Health Maintenance Results * MAMMO 3D ALBERT SCREEN BILAT W OR WO CAD (01/08/2024 1:33 PM TIRE MOLD TESTER) Anatomical Region Laterality Modality Breast Bilateral Mammography 01/08/2024 1:33 PM TIRE MOLD TESTER Impressions 01/11/2024 10:21 AM TIRE MOLD TESTER IMPRESSION: BI-RADS Category 1, negative mammogram. Recommend yearly bilateral screening mammogram. Narrative 01/11/2024 10:21 AM TIRE MOLD TESTER EXAM: MAMMO 3D ALBERT SCREEN BILAT W OR WO CAD DATE: 01/08/2024 CLINICAL HISTORY: Screening in an asymptomatic patient with history of reduction mammoplasty and no personal or family history of breast cancer TECHNIQUE: Bilateral full field digital mammography and digital tomosynthesis were performed in the CC and MLO projections. Comparison was made to prior bilateral mammograms performed November 25, 2022, August 31, 2021, May 03, 2019 and February 02, 2017. CAD was utilized. FINDINGS: The breast parenchyma is fatty. The parenchymal pattern is unchanged compared to the prior exams. There is no new suspicious asymmetry or mass, area of architectural distortion or suspicious microcalcification. Mammography Self Referral Provider MD ADOLFO MCLEAN Final Result from Last 3 Months or Most Recently Relevant to Health Maintenance Insurance [facility] [id number]
--- OUTSIDE RECORDS SUMMARY | 2025-01-29 08:58 | XMS_ITS | Clinical Summary ---
Author Organization [facility] [employer] Address [address] [address] Care Team Providers Care Centrifugal Station Operator Name Role Phone Tyler Lynne MD Primary Care Provider [phone] Source Comments [facility] [employer],non-owned Affiliates and Associated Physician Practices is amultiple site organization consisting of ambulatory clinics and hospital sitesin [place], [place], [place] and [place]. This disclosure is being madepursuant to the Care Everywhere program and may not contain all information available regarding this patient. Last updated 17.[facility] [employer] Allergies Active Allergy Reactions Criticality Noted Date Comments Diphenhydramine Rash Low 02/28/2011 Latex 04/06/2009 Bupropion Hcl 04/06/2009 Medications * Be aware that medications may not be up to date on this document. Alwaysverify current medications with the patient. aspirin EC (ECOTRIN) 81 MG tablet Take 81 mg by mouth once daily. Active [place]-3 Fatty Acids (FISH OIL) 1200 MG CAPS Take 2,400 mg by mouth once daily. Active Pyridoxine HCl (VITAMIN B-6 PO) Take 100 mg by mouth once daily. Active Biotin 1000 MCG TABS Take 1 Tab by mouth once daily. Active vitamin B-12 (CYANOCOBALAMIN) 1000 MCG tablet Take 1,000 mcg by mouth once daily. Active Vitamins A & D (VITAMIN A & D) 17924-557 UNITS CAPS Take 1 Tab by mouth once daily. Active Coenzyme Q10 (COQ10 PO) Take 1 Tab by mouth once daily. Active Psyllium (METAMUCIL PO) Take 2 Tabs by mouth once daily. Active hydrocodone-acet aminophen (VICODIN ES) 7.5-750 MG tablet Take 1 Tab by mouth every 6 hours as needed for Pain. 20 Tab 0 10/20/2012 Active ascorbic acid (VITAMIN C) 500 MG tablet Take 500 mg by mouth once daily Active Active Problems Problem Noted Date Diagnosed Date Colon polyp 11/08/2010 Diverticulosis of colon 11/08/2010 Hypertension 10/03/2009 Screening for condition 04/06/2009 Overview (11/23/2014): Adult Abstraction Problem List Screening Colonoscopy: Result: Not avail in chart Date: 07/18/98 Mammogram: Result: Not avail in chart Date: 11/19/07-, 12/01- Social History Tobacco Use Types Packs/Day Years Used Date Smoking Tobacco: Former Smokeless Tobacco: Never Alcohol Use Standard Drinks/Week Comments No 0 (1 standard drink = 0.6 oz pur e alcohol) Comments No Sex and Gender Information Value Date Recorded Sex Assigned at Not on file Legal Sex Female 6:43 AM STEM LEAD FORMER Gender Identity Not on file Sexual Orientation Not on file Last Filed Vital Signs Vital Sign Reading Time Taken Comments Blood Pressure 124/88 04/26/2015 9:50 AM STEM LEAD FORMER Pulse 69 04/26/2015 9:50 AM STEM LEAD FORMER Temperature 37.2 C (99 F) 04/26/2015 8:33 AM STEM LEAD FORMER Respiratory Rate 12 04/26/2015 9:50 AM STEM LEAD FORMER Oxygen Saturation 93% 04/26/2015 9:50 AM STEM LEAD FORMER Inhaled Oxygen Concentration - - Weight 83.9 kg (185 lb) 04/26/2015 8:33 AM STEM LEAD FORMER Height 162.6 cm (5' 4) 04/26/2015 8:33 AM STEM LEAD FORMER Body Mass Index 31.76 04/26/2015 8:33 AM STEM LEAD FORMER Plan of Treatment Health Maintenance Due Date Last Done Comments COLOGUARD (AGES 45-75) - COLON CA SCREENING 1960 CT COLONOGRAPHY - COLON CA SCREENING 1960 FIT - COLON CA SCREENING 1960 FLEX SIG - COLON CA SCREENING 1960 HIV SCREENING 02/10/1975 HEPATITIS C SCREENING 02/06/1978 DTAP/TDAP/TD VACCINES (1 - Tdap) 02/10/1979 PAP with HPV 02/10/1990 PNEUMOCOCCAL VACCINE 50+ (1 of 1 - PCV) 02/10/2010 ZOSTER VACCINE (1 of 2) 02/10/2010 MAMMOGRAM 01/23/2012 01/22/2010, 11/23/2008 Cervical Cancer Screening 04/11/2012 PAP SMEAR 04/11/2012 04/11/2009 (Othe r - see comments) LIPID TESTING 06/26/2017 06/26/2012, 05/2012, 02/22/2011, Additional history exists COLON MONITORING 04/25/2020 04/26/2015, 04/2015, 11/09/2012, Additional history exists Colorectal Cancer Screening 04/25/2020 DEPRESSION SCREENING 02/24/2024 COVID-19 VACCINE ( season) 2024 INFLUENZA VACCINE (#1) 2024 11/24/2012 COLONOSCOPY - COLON CA SCREENING 04/25/2025 04/26/2015, 04/26/2015, 11/09/2012, Additional history exists Respiratory Syncytial Virus (RSV) Vaccine Pt: or over 60 yrs (1 - 1-dose 75+ series) 02/10/2035 HEPATITIS B VACCINE Aged Out No longe r eligible based on patient's age to complete this topic HIB VACCINE Aged Out No longer eligi ble based on patient's age to complete this topic HPV VACCINE Aged Out No longer eligi ble based on patient's age to complete this topic MENINGOCOCCAL (Group B) VACCINE SHARED DECISION-MAKING Aged Out No longer eligible based on patient's age to complete this topic MENINGOCOCCAL GROUPS A/C/Y/W VACCINE Aged Out No longer eligible based on patient's age to complete this topic Procedures Procedure Name Priority Date/Time Associated Diagnosis Comments ENDOSCOPY, COLON, SCREENING Routine 04/26/2015 9:04 AM STEM LEAD FORMER LIPID PROFILE Routine 06/26/2012 8:53 AM CDT MAMMO BILAT SCREENING Routine 01/22/2010 from Last 3 Months or Most Recently Relevant to Health Maintenance Results * ENDOSCOPY, COLON, SCREENING (04/26/2015 9:04 AM STEM LEAD FORMER) Report Endoscopy POC _ Patient Name: Kirti Chiu Procedure Date: 04/26/2015 9:04 AM Date of : 1960 Admit Type: Outpatient Age: 55 Gender: Female Attending MD: Bc King MD _ Procedure: Colonoscopy Indications: Heme positive stool Providers: Bc King MD (Doctor), Diogo Fields, Signal And Communications Maintainer Referring MD: Tyler Lynne MD (Referring MD) Medicines: Monitored Anesthesia Care Complications: No immediate complications. _ Procedure: Pre-Anesthesia Assessment: - ASA Grade Assessment: II - A patient with mild systemic disease. - Airway Examination: Mallampati Class I (tonsillar pillars visualized). After I obtained informed consent, the scope was passed under direct vision. Throughout the procedure, the patient's blood pressure, pulse, and oxygen saturations were monitored continuously. The Colonoscope was introduced through the anus and advanced to the cecum, identified by appendiceal orifice and ileocecal valve. The colonoscopy was performed without difficulty. The patient tolerated the procedure well. The quality of the bowel preparation was good. Impression: - Diverticulosis. - No specimens collected. Findings: Diverticula were found in the colon. _ Recommendation: - Repeat colonoscopy in 5 years for screening purposes. Procedure Code(s): --- Professional --- 22616, Colonoscopy, flexible; diagnostic, including collection of specimen(s) by brushing or washing, when performed (separate procedure) --- Technical --- 87626, Colonoscopy, flexible; diagnostic, including collection of specimen(s) by brushing or washing, when performed (separate procedure) Diagnosis Code(s): --- Professional --- R19.5, Other fecal abnormalities K57.30, Diverticulosis of large intestine without perforation or abscess without bleeding --- Technical --- R19.5, Other fecal abnormalities K57.30, Diverticulosis of large intestine without perforation or abscess without bleeding CPT copyright 2014 [employer]. All rights reserved. The codes documented in this report are preliminary and upon hospital coder review may be revised to meet current compliance requirements. Bc King MD 04/26/2015 9:26:23 AM This report has been signed electronically. Number of Addenda: 0 Note Initiated On: 04/26/2015 9:04 AM [facility] ENDOSCOPY 04/26/2015 9:04 AM STEM LEAD FORMER us Bc King MD GI PROCEDURE ORDERABLES Edited R esult - Final [facility] ENDOSCOPY * LIPID PROFILE (06/26/2012 8:53 AM CDT) Cholesterol Total 163 100 - 199 mg/dL [facility] ([facility]) Triglycerides 96 0 - 149 mg/dL [facility] ([facility]) HDL 45 >39 mg/dL [facility] ([facility]) Comment: According to ATP-III Guidelines, HDL-C >59 mg/dL is considered a negative risk factor for CHD. VLDL Calculated 19 5 - 40 mg/dL [facility] ([facility]) LDL Calculated 99 0 - 99 mg/dL [facility] ([facility]) 06/26/2012 8:53 AM CDT 06/26/2012 1:11 PM CDT Narrative [facility] ([facility]) - 06/27/2012 7:08 AM CDT Performed at: 01 [facility] [address] [place], [place] [id number] Field Training Agent: Mynor Marsh PhD, Phone: [phone] us Cait Rivas MD LAB - CHEMISTRY ORDERA BLES Final Result [facility] ([facility]) [address] [place] [address] * MAMMO SCREENING DIGITAL IMAGE BILAT (01/22/2010) Anatomical Region Laterality Modality Breast Bilateral Other us Provider Unknown MAMMO ORDERABLES Final Result from Last 3 Months or Most Recently Relevant to Health Maintenance Insurance [facility] Care Teams Centrifugal Station Operator Relationship Specialty Start Date End Date Tyler Lynne MD PCP - General Family Medicine 04/17/15
--- OUTSIDE RECORDS SUMMARY | 2025-01-29 10:08 | XMS_ITS | Clinical Summary ---
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, left 2019 Overview (07/01/2019): Added automatically from request for surgery [id number] Wrist pain, chronic, left 04/28/2018 Sickle cell trait 03/22/2018 Shoulder strain, left, initial encounter 018 Assessment & Plan (02/01/2018 10:45 AM VETERINARY MEAT INSPECTOR): Ice, Rest, light stretching, Can do Stim Naprosyn as needed Muscle relaxants at bedtime as needed Class 1 obesity due to exces s calories without serious comorbidity with body mass index (BMI) of 32.0 to 32.9 in adult 04/27/2017 Assessment & Plan (04/28/2024 9:52 AM VETERINARY MEAT INSPECTOR): BMI Follow-up includes: nutrition counseling. Assessment & Plan (09/07/2022 11:20 AM CDT): BMI Follow-up includes: nutrition counseling, exercise counseling, and education provided. Assessment & Plan (07/03/2022 4:54 PM CDT): Healthy, low carbohydrate lifestyle and exercise for 150min/week recommended Assessment & Plan (02/26/2022 3:42 PM VETERINARY MEAT INSPECTOR): BMI Follow-up includes: nutrition counseling, exercise counseling [...] 10/18/2018 Assessment & Plan (04/05/2018 12:50 PM VETERINARY MEAT INSPECTOR): Patient was noted to have a small [...] Sickle cell anemia (HCC) 1981 Autoimmune disease [id number] Family History Medical History Relation Name Comments Arthritis Father Rev Edmond Ahn Hypertension Father Rev Edmond Ahn Hyperten marleni; Arthritis Mother Christina Ahn Hypertension Mother Christina Ahn Hypertension; Arthritis Other 1 Family history of Arthritis; Hypertension Other 2 Family history of Hypertension; Breast cancer Neg Hx Endometrial cancer Neg Hx Ovarian cancer Neg Hx Thyroid cancer Neg Hx Relation Name Status Comments Father Rev Edmond Ahn Mother Christina Ahn Other 1 Other [...] on file Legal Sex Female 12:50 PM VETERINARY MEAT INSPECTOR Gender Identity Not on file Sexual Orientation Straight 06/28/2019 9: 49 AM CDT 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 A negative Cologuard [...] (Catherine Pinon al, N Engl J Med 2014;370(14):8455-0048) The normal value (reference range) for this assay is negative. COLOGUARD RE-SCREENING RECOMMENDATION: Periodic colorectal cancer screening is an important part of preventive healthcare for asymptomatic individuals at average risk for colorectal cancer. Following a negative Cologuard result, the [place] Cancer Society and U.S. Multi-Society Task Force screening guidelines recommend a Cologuard re-screening interval of 3 years. References: [place] Cancer Society Guideline for Colorectal Cancer Screening: https://www.cancer.org/cancer/txvnj-qpiykj-wexoub/bjbepevgf-puwkmzmve-qlddvte/ac s-rec ommendations.html.; Oren PATEL, Viraj EAST, Jorge BENNETT, Colorectal Cancer Screening: Recommendations for Physicians and Patients from the U.S. Multi-Society Task Force on Colorectal Cancer Screening , Am J Gastroenterology 2017; 112:1694-3436. TEST DESCRIPTION: Composite algorithmic analysis of stool [...] Love. et al, N Engl J Med 2014;370(14):9558-6350.) Cologuard may produce a false negative or false positive result (no colorectal cancer or precancerous polyp present at colonoscopy follow up). A negative Cologuard test result does not guarantee the absence of CRC or advanced adenoma (pre-cancer). The current Cologuard screening interval is every 3 years. ([place] Cancer Society and U.S. Multi-Society Task Force). Cologuard performance data in a 10,000 patient pivotal study using colonoscopy as the reference method can be accessed at the following location: www.[employer].Inmobiliarie/results. Additional description of the Cologuard test process, warnings and precautions can be found at www.cologuard.com. Stool 05/20/2024 10:2 4 AM CDT 05/21/2024 6:35 AM CDT Result [facility] Tyler Lynne MD LAB BODY FLUIDS AND STOOLS ORDERABLES Final Result Performing Organization Address City/[facility]/ZIP Co de Phone Number [facility] (CLIA #:[id number]) [address] [place] [address] [place] [address] * Screening Mammogram 2D Bilateral (11/25/2022) Anatomical Region Laterality Modality Breast Bilateral Mammography Historical Provider IMG MAMMO PROCEDURES Hailey l Result * Hepatitis C antibody (12/12/2021 10:04 AM CDT) Hep C Ab Nonreactive Nonreactive [facility] Comment: Interpretive Data Nonreactive: Antibodies to HCV [...] AM CDT 12/12/2021 11:26 AM CDT Result [facility] Wanda Diaz MD LAB MICROBIOLOGY - GENERAL ORDER GAGAN Final Result Performing Organization Address City/[facility]/ZIP Co de Phone Number [facility] [address] Department of [place] [address] * Colonoscopy (04/26/2015) Anatomical Region Laterality Modality Other Result [facility] Historical Provider ENDOSCOPY PROCEDURES Hailey l Result from Last 3 Months or Most Recently Relevant to Health Maintenance Insurance AETNA T [facility] MEDICARE ADVANT[facility] Address: [address] [address] [place] [address] Care Teams Debeader Relationship Specialty Start Date End Date Tyler Lynne MD [address] [place] [address] PCP - General 05/23/16 Rachael Scott MD [address] [place], [place] [address] [place], [place] [id number] Logistics Management Specialist Gynecology 01/11/18 Wanda Diaz MD [address] [place], [place] [address] [place] [address] Consulting Physician Rheumatology 02/26/22
--- OUTSIDE RECORDS SUMMARY | 2025-01-29 10:08 | XMS_ITS | Clinical Summary ---
Author Organization [facility] Address [address] [place] [address] Care Team Providers Care Leg Assembler Name Role Phone Tyler Lynne MD Primary Care Provider Source Comments [facility],non-owned Affiliates and Associated Physician Practices is amultiple site organization consisting of ambulatory clinics and hospital sitesin [place], [place], [place] and [place]. This disclosure is being madepursuant to the Care Everywhere program and may not contain all information available regarding this patient. Last updated 17.[facility] Allergies Active Allergy Reactions Criticality Noted Date Comments Diphenhydramine Rash Low 02/28/2011 Latex 04/06/2009 Bupropion Hcl 04/06/2009 Medications * Be aware that medications may not be up to date on this document. Alwaysverify current medications with the patient. aspirin EC (ECOTRIN) 81 MG tablet Take 81 mg by mouth once daily. Active [place]-3 Fatty Acids (FISH OIL) 1200 MG CAPS Take 2,400 mg by mouth once daily. Active Pyridoxine HCl (VITAMIN B-6 PO) Take 100 mg by mouth once daily. Active Biotin 1000 MCG TABS Take 1 Tab by mouth once daily. Active vitamin B-12 (CYANOCOBALAMIN) 1000 MCG tablet Take 1,000 mcg by mouth once daily. Active Vitamins A & D (VITAMIN A & D) 29920-981 UNITS CAPS Take 1 Tab by mouth [...] on file Legal Sex Female 6:43 AM DOUPER Gender Identity Not on file Sexual Orientation Not on file Last Filed Vital Signs Vital Sign Reading Time Taken Comments Blood Pressure 124/88 04/26/2015 9:50 AM DOUPER Pulse 69 04/26/2015 9:50 AM DOUPER Temperature 37.2 C (99 F) 04/26/2015 8:33 AM DOUPER Respiratory Rate 12 04/26/2015 9:50 AM DOUPER Oxygen Saturation 93% 04/26/2015 9:50 AM DOUPER Inhaled Oxygen Concentration - - Weight 83.9 kg (185 lb) 04/26/2015 8:33 AM DOUPER Height 162.6 cm (5' 4) 04/26/2015 8:33 AM DOUPER Body Mass Index 31.76 04/26/2015 8:33 AM DOUPER Plan of Treatment Health Maintenance Due Date [...] ENDOSCOPY, COLON, SCREENING Routine 04/26/2015 9:04 AM DOUPER LIPID PROFILE Routine 06/26/2012 8:53 AM CDT MAMMO BILAT SCREENING Routine 01/22/2010 from Last 3 Months or Most Recently Relevant to Health Maintenance Results * ENDOSCOPY, COLON, SCREENING (04/26/2015 9:04 AM DOUPER) Report Endoscopy POC _ Patient Name: Kirti Chiu Procedure Date: 04/26/2015 9:04 AM Date of : 1960 Admit Type: Outpatient Age: 55 Gender: Female Attending MD: Bc King MD _ Procedure: Colonoscopy Indications: Heme positive stool Providers: Bc King MD (Doctor), Diogo Fields, Bankruptcy Manager Referring MD: Tyler Lynne MD (Referring MD) [...] screening purposes. Procedure Code(s): --- Professional --- 07092, Colonoscopy, flexible; diagnostic, including collection of specimen(s) by brushing or washing, when performed (separate procedure) --- Technical --- 75466, Colonoscopy, flexible; diagnostic, including collection of specimen(s) by brushing or washing, when performed (separate procedure) Diagnosis Code(s): --- Professional --- R19.5, Other fecal abnormalities K57.30, Diverticulosis of large intestine without perforation or abscess without bleeding --- Technical --- R19.5, Other fecal abnormalities K57.30, Diverticulosis of large intestine without perforation or abscess without bleeding CPT copyright 2014 [employer] [place] [employer]. All rights reserved. The codes documented in this report are preliminary and upon coder operator review may be revised to meet current compliance requirements. Bc King MD 04/26/2015 9:26:23 AM This report has been signed electronically. Number of Addenda: 0 Note Initiated On: 04/26/2015 9:04 AM [facility] ENDOSCOPY 04/26/2015 9:04 AM DOUPER us Bc King MD GI PROCEDURE ORDERABLES Edited R esult - Final [facility] ENDOSCOPY * LIPID PROFILE (06/26/2012 8:53 AM CDT) Cholesterol Total 163 100 - 199 mg/dL [facility] Triglycerides 96 0 - 149 mg/dL [facility] ([facility]) HDL 45 >39 mg/dL [facility] ([facility]) Comment: According to ATP-III Guidelines, HDL-C >59 mg/dL is considered a negative risk factor for CHD. VLDL Calculated 19 5 - 40 mg/dL [facility] ([facility]) LDL Calculated 99 0 - 99 mg/dL [facility] ([facility]) 06/26/2012 8:53 AM CDT 06/26/2012 1:11 PM CDT Narrative [facility] ([facility]) - 06/27/2012 7:08 AM CDT Performed at: [facility] [address] [place], [place] [id number] Telegraph Operator: Mynor Marsh PhD, Phone: [phone] us Cait Rivas MD LAB - CHEMISTRY ORDERA BLES Final Result [facility] ([facility]) [address] [place] [address] * MAMMO SCREENING DIGITAL IMAGE BILAT (01/22/2010) Anatomical Region Laterality Modality Breast Bilateral Other us Provider Unknown MAMMO ORDERABLES Final Result from Last 3 Months or Most Recently Relevant to Health Maintenance Insurance [facility] Care Teams Leg Assembler Relationship Specialty Start Date End Date Tyler Lynne MD PCP - General Family Medicine 04/17/15
--- OUTSIDE RECORDS SUMMARY | 2025-01-29 10:08 | XMS_ITS | Clinical Summary ---
Author Organization [facility] Address [address] [place] [id number] Care Team Providers Care Infantry Senior Sergeant Name Role Phone Unavailable Primary Care Provider [...] on file Legal Sex Female 6:44 PM DIRECTOR TALENT MANAGEMENT Gender Identity Not on file Sexual Orientation [...] OR WO CAD Routine 01/08/2024 1:33 PM DIRECTOR TALENT MANAGEMENT Visit for screening mammogram from Last 3 Months or Most Recently Relevant to Health Maintenance Results * MAMMO 3D ALBERT SCREEN BILAT W OR WO CAD (01/08/2024 1:33 PM DIRECTOR TALENT MANAGEMENT) Anatomical Region Laterality Modality Breast Bilateral Mammography 01/08/2024 1:33 PM DIRECTOR TALENT MANAGEMENT Impressions 01/11/2024 10:21 AM DIRECTOR TALENT MANAGEMENT IMPRESSION: BI-RADS Category 1, negative mammogram. Recommend yearly bilateral screening mammogram. Narrative 01/11/2024 10:21 AM DIRECTOR TALENT MANAGEMENT EXAM: MAMMO 3D ALBERT SCREEN BILAT W [...] Most Recently Relevant to Health Maintenance Insurance [facility] [id number]
[2025-01-29] MEDS: KETOROLAC 30 MG/ML VIAL (*BKC) 15 MG IM (10:36)
[2025-01-29] MEDS: predniSONE 40 MG, predniSONE 10 MG 50 MG PO (10:37)
[2025-01-29] MEDS: diazePAM (*CRX) 5 MG TABLET 2.5 MG PO (10:37)
[2025-01-29 10:38] VITALS: BP 134/79; PULSE 74; RESP 19; O2SAT 100
--- NOTE | 2025-01-29 12:39 | ED.EXTPRO ---
HPI - Extremity Problem General Chief complaint: Extremity Problem,Nontraumatic Stated complaint: R shoulder/back pain without injury Time Seen by Provider: 01/29/25 09:56 History of Present Illness HPI Narrative: Patient has history of rheumatoid arthritis, since yesterday while she was watching a musical she started having some pain to her right shoulder, it gradually worsened she tried taking ibuprofen without much improvement, pain is much worse when she tries to move her shoulder. No chest pain or trouble breathing, no focal numbness or weakness Related Data Allergies Allergy/AdvReac Type Severity Reaction Status Date / Time No Known Allergies Allergy Mild Verified 01/29/25 10:36 Review of Systems Review of Systems: All systems reviewed & are unremarkable except as noted in HPI and below Exam Narrative: EXAMINATION OF ORGAN SYSTEMS/BODY AREAS: Constitutional: Vital signs per nursing GENERAL:[No acute distress, non-toxic appearing.] HEAD: Normal with no signs of head trauma. EYES: EOMI, conjunctiva normal ENT: Hearing grossly intact LUNGS: Nonlabored breathing. HEART: [Regular rate and rhythm], normal right DP pulse ABD: [Soft], [nontender to palpation] EXT: Really sedation of pain when I try to range her right shoulder, difficult to go beyond 90? circum flexion SKIN: [No rashes or lesions.] NEURO: [Alert. No gross focal sensory or strength deficits.] PSYCH: Normal affect Course Vital Signs Vital signs: Vital Signs Temperature 97.7 F 01/29/25 08:55 Pulse Rate 89 01/29/25 08:55 Respiratory Rate 16 01/29/25 08:55 Blood Pressure 146/77 H 01/29/25 08:55 Pulse Oximetry 100 01/29/25 08:55 Temperature 97.7 F 01/29/25 08:55 Pulse Rate 74 01/29/25 10:38 Respiratory Rate 19 01/29/25 10:38 Blood Pressure 134/79 01/29/25 10:38 Pulse Oximetry 100 01/29/25 10:38 [facility] Narrative Medical decision making narrative: 64-year-old presents with right shoulder pain, has history of arthritis on hydrochloroquine. She is well-appearing on exam, though I can re-elicit the pain when I move her shoulder. I did consider possible ACS EKG - 12-Lead: Performed at 0901. Interpreted by me. [Sinus rhythm]. Rate 85. [Normal] axis. OR-interval [normal]. QRS duration [normal]. QTc [normal]. [No ST segment elevation or depression]. [T-wave normal]. Impression: No EKG evidence of acute ischemia or dysrhythmia. The patient has no chest pain or shortness of breath. I did consider dissection but the pain is only when she moves her shoulder is neurovascularly intact with normal vital signs. She has done well with steroids in the past for the arthritis so I will trial a course of that, and she will follow-up with her clinical quality assurance associate in 3 days. Stable for discharge with return precautions Differential Diagnosis Differential Diagnosis: ACS, dissection, arthritis flare, shoulder sprain Discharge Plan Discharge Clinical Impression: Acute shoulder pain Patient Disposition: Home Condition: Stable Instructions: Shoulder Pain (ED) Additional Instructions: Try the medications as prescribed and follow-up with your clinical quality assurance associate as scheduled. If you have any worsening pain, so she start having chest pain or shortness of breath or anything else concerning, please come back to the emergency room. Patient Language: Croatian Prescriptions: New methylprednisolone [Medrol (Tino)] 4 mg tablets,dose pack See Rx Instructions .ROUTE .COMPLEX Qty: 21 0RF Rx Instructions: orally per package directions methocarbamol 750 mg tablet 750 mg PO TID PRN (Reason: muscle spasm) Qty: 30 0RF Follow-up/Referrals: Guera,Tyler Ross MD [Primary Care Provider, Unknown]
== END 2025-01-29 10:55 | disposition home or self-care (01) ==
PROVIDERS: Emergency Provider Emergency Medicine; PCP Family Medicine
DX: M25.511 Pain in right shoulder (principal); M06.9 Rheumatoid arthritis, unspecified
CPT/HCPCS: 73030; 93005; 96372; 99283; A9270; J1885; J7512